=== PATIENT | female | born 1985 | race Two or more races ===

== ENCOUNTER 2019-08-12 03:27 | Emergency (ER) | payer OTHER ==
[2019-08-12 03:38] VITALS: BP 117/80
[2019-08-12] MEDS ORDERED: NORMAL SALINE 1000 ML 1,000 ML IV ONE (04:40)
[2019-08-12] MEDS ORDERED: LIDOCAINE 2% VISCOUS SOLN 15 ML UDCUP PO ONE (04:41)
[2019-08-12] MEDS ORDERED: ONDANSETRON HCL INJ/PF 4 MG/2 ML SDV IV ONE (04:41)
[2019-08-12] MEDS ORDERED: METOCLOPRAMIDE HCL ORAL SOLN 10 MG/10 ML UDCUP PO ONE (04:42)
[2019-08-12] MEDS ORDERED: MAG HYDROX/AL HYDROX/SIMETH SUSP 30 ML UDCUP PO ONE (04:42)
--- NOTE | 2019-08-12 04:44 | ER Document Report ---
Entered by MADDY SMITH SCRIBE 08/12/19 0411 Acting as scribe for:JONATAN MONTANEZ IV, MD ED GI/ - General Mode of Arrival: Ambulatory Information source: Patient <JONATAN MONTANEZ IV - Last Filed: 08/12/19 05:41> <RYLAN ELIAS - Last Filed: 08/12/19 08:05> - General Chief Complaint: Epigastric Pain Stated Complaint: ABDOMINAL PAIN/VOMITING Time Seen by Provider: 08/12/19 04:08 Notes: This 34 year old female patient with a history of GERD presents to the ED today with complaints of epigastric pain with associated nausea/vomiting for the past x2 days. Patients states that the pain is sharp in nature and is exacerbated by food and drink. She reports that she has had episodes of reflux in the past, but not like this, stating that the pain feels like a "gas pain that is constant." She notes that she has been vomiting acid and that she has not been able to keep anything down. (JONATAN MONTANEZ IV) - Related Data Allergies/Adverse Reactions: No Known Allergies Allergy (Unverified 08/12/19 03:49) Past Medical History - General Information source: Patient - Social History Smoking Status: Current Every Day Smoker Cigarette use (# per day): Yes Chew tobacco use (# tins/day): No Smoking Education Provided: No Frequency of alcohol use: Social Drug Abuse: None Family History: Reviewed & Not Pertinent Patient has suicidal ideation: No Patient has homicidal ideation: No GI Medical History: Reports: Hx Gastroesophageal Reflux Disease <JONATAN MONTANEZ IV - Last Filed: 08/12/19 05:41> Review of Systems - Review of Systems Constitutional: No symptoms reported EENT: No symptoms reported Cardiovascular: No symptoms reported Respiratory: No symptoms reported Gastrointestinal: See HPI, Abdominal pain, Nausea, Vomiting Genitourinary: No symptoms reported Female Genitourinary: No symptoms reported Musculoskeletal: No symptoms reported Skin: No symptoms reported Hematologic/Lymphatic: No symptoms reported Neurological/Psychological: No symptoms reported -: Yes All other systems reviewed and negative <JONATAN MONTANEZ IV - Last Filed: 08/12/19 05:41> Physical Exam - Vital signs Interpretation: Normal - General General appearance: Alert In distress: None - HEENT Head: Normocephalic, Atraumatic Eyes: Normal Pupils: PERRL - Respiratory Respiratory status: No respiratory distress Chest status: Nontender Breath sounds: Normal Chest palpation: Normal - Cardiovascular Rhythm: Regular Heart sounds: Normal auscultation Murmur: No Friction rub: No Gallop: None auscultated - Abdominal Inspection: Normal Distension: No distension Bowel sounds: Normal Tenderness: Tender - Tenderness to palpation of epigastric region, Other - Abdomen soft Organomegaly: No organomegaly - Back Back: Normal, Nontender - Extremities General upper extremity: Normal inspection General lower extremity: Normal inspection - Neurological Neuro grossly intact: Yes Orientation: AAOx4 - Psychological Associated symptoms: Normal affect, Normal mood - Skin Skin Temperature: Warm Skin Moisture: Dry Skin Color: Normal <JONATAN MONTANEZ IV - Last Filed: 08/12/19 05:41> - Vital signs Vitals: Temp Pulse Resp BP Pulse Ox 98.3 F 87 16 117/80 100 08/12/19 03:37 08/12/19 03:37 08/12/19 03:37 08/12/19 03:37 08/12/19 03:37 Course <JONATAN MONTANEZ IV - Last Filed: 08/12/19 05:41> - Laboratory Result Diagrams: 08/12/19 04:55 08/12/19 04:55 - Diagnostic Test Radiology reviewed: Image reviewed, Reports reviewed <RYLAN ELIAS - Last Filed: 08/12/19 08:05> - Re-evaluation Re-evalutation: 08/12/19 07:58 Dr. ribeiro asked me to follow-up with this patient discharge, laboratories and make a disposition for her once her work-up is complete. Patient resting comfor tably not having any abdominal pain at this time. Patient reports that she wants to go home because she is from out of town and wants to complete her work- up in [place] with her primary care physician. I explained to patient that she had abnormal LFTs and I was concerned that she may have gallbladder problems. Patient denies any excessive alcohol use or taking Tylenol any hepatitis in the past. Patient reports that she she will be driving back to [place] tomorrow and wants to pick this problem up and take it to her primary care physician. I advised patient to avoid fatty foods in her wrote home because of his her gallbladder and may act up again. Patient denies agreeing with any further work-up at this time in our hospital. I explained the patient she does not appear to have any life-threatening illness at this time or any surgical emergency. Will place patient on Zofran and omeprazole to assist her in getting home without nausea and vomiting and acid reflux problems. (RYLAN ELIAS) - Vital Signs Vital signs: Temp Pulse Resp BP Pulse Ox 98.3 F 87 16 117/80 100 08/12/19 03:37 08/12/19 03:37 08/12/19 03:37 08/12/19 03:37 08/12/19 03:37 08/12/19 08:01 Vital signs stables no acute process. (RYLAN ELIAS) - Laboratory Laboratory results interpreted by me: 08/12/19 08/12/19 03:37 04:55 Potassium 3.5 L Glucose 115 H AST 723 H ALT 358 H Urine Protein 100 H Urine Blood SMALL H Urine Urobilinogen 2.0 H Ur Leukocyte Esterase TRACE H 08/12/19 08:02 Laboratories show an elevation in the ALT and AST. Normal alk phos and normal bilirubin. Patient still has her gallbladder and I explained the patient that most likely these elevations may be related to gallbladder disease. (RYLAN ELIAS) - Diagnostic Test Radiology results interpreted by me: 08/12/19 08:01 Chest x-ray shows no acute process. (RYLAN ELIAS) - EKG Interpretation by Me Additional EKG results interpreted by me: 08/12/19 05:41 EKG obtained on 08/12/2019 at 0531 hrs. was interpreted by this MD. Findings: Normal sinus rhythm, rate 83, normal axis, P waves proceed QRS complexes, QRS complexes appear narrow, there are no obvious patterns of ST segment elevation or depression present to suggest acute myocardial ischemia or infarction. Impression: Normal sinus rhythm with nonspecific ST segments. (JONATAN MONTANEZ IV) Discharge <JONATAN MONTANEZ IV - Last Filed: 08/12/19 05:41> <RYLAN ELIAS - Last Filed: 08/12/19 08:05> - Discharge Clinical Impression: Epigastric pain, LFT elevation, Nausea Condition: Stable Disposition: HOME, SELF-CARE Instructions: Gallbladder Disease ([facility]) Prescriptions: Omeprazole 40 mg PO DAILY #10 capsule. Ondansetron [Zofran Odt 4 mg Tablet] 1 - 2 tab PO Q4H PRN #15 tab.rapdis PRN Reason: For Nausea/Vomiting I personally performed the services described in the documentation, reviewed and edited the documentation which was dictated to the scribe in my presence, and it accurately records my words and actions.
--- NOTE | 2019-08-12 05:27 | RADIOLOGY REPORT (SQ) ---
EXAM DESCRIPTION: XR CHEST 1 VIEW COMPLETED DATE/TME: 08/12/2019 04:40 CLINICAL HISTORY: 34 years, Female, epigastric pain COMPARISON: None. NUMBER OF VIEWS: One TECHNIQUE: AP view of the chest LIMITATIONS: None. FINDINGS: The lungs are clear. The heart is normal in size. No pneumothorax or pleural effusion. Bones are unremarkable. IMPRESSION: No acute cardiopulmonary abnormality. copyright 2010 [employer]- All Rights Reserved
[2019-08-12 06:01] LABS: APPEARANCE,URINE TURBID; BILIRUBIN,URINE NEGATIVE (NEGATIVE); GLUCOSE, URINE NEGATIVE (NEGATIVE); KETONES,URINE NEGATIVE (NEGATIVE); LEUKOCYTE ESTERASE,URINE TRACE (NEGATIVE); NITRITE,URINE NEGATIVE (NEGATIVE); PROTEIN,URINE 100 mg/dL (NEGATIVE); URINE SPECIFIC GRAVITY 1.027
[2019-08-12 06:05] LABS: COLOR,URINE DARK YELLOW
--- NOTE | 2019-08-12 06:05 | EKG REPORT ---
SEVERITY:- NORMAL ECG - SINUS RHYTHM : Confirmed by: Jamar Darby MD 12-Aug-2019 06:04:15
[2019-08-12 06:11] LABS: ALBUMIN 4.1 g/dL (3.5-5.0); ALKALINE PHOSPHATASE 77 U/L (38-126); ANION GAP 8 (5-19); ASPARTATE AMINO TRANSFERASE 723 U/L (14-36); BILIRUBIN,TOTAL 0.5 mg/dL (0.2-1.3); BLOOD UREA NITROGEN 13 mg/dL (7-20); CALCIUM 8.7 mg/dL (8.4-10.2); CARBON DIOXIDE 26 mmol/L (22-30); CHLORIDE 104 mmol/L (98-107); GLUCOSE 115 mg/dL (75-110); POTASSIUM 3.5 mmol/L (3.6-5.0)
[2019-08-12 07:27] LABS: ABSOLUTE EOSINOPHILS # (AUTO) 0.2 10^3/uL (0.0-0.6); ABSOLUTE MONOCYTES (AUTO) 0.5 10^3/uL (0.1-1.4); ABSOLUTE NEUT (AUTO) 4.7 10^3/uL (1.7-8.2); BASOPHILS % (AUTO) 0.7 % (0-2); EOSINOPHILS % (AUTO) 3.2 % (0-6); HEMATOCRIT 37.4 % (36.0-47.0); HEMOGLOBIN 12.6 g/dL (12.0-15.5); LYMPHOCYTES % (AUTO) 15.5 % (13-45); MEAN CORPUSCULAR HEMOGLOBIN 31.3 pg (27.0-33.4); MEAN CORPUSCULAR HGB CONC 33.8 g/dL (32.0-36.0); MEAN CORPUSCULAR VOLUME 93 fl (80-97); MONOCYTES % (AUTO) 8.3 % (3-13); PLATELET COUNT 181 10^3/uL (150-450); RED BLOOD COUNT 4.03 10^6/uL (3.72-5.28); RED CELL DISTRIBUTION WIDTH 13.2 % (11.5-14.0); SEGMENTED NEUTROPHILS % (AUTO) 72.3 % (42-78); TOTAL CELLS COUNTED % (AUTO) 100 %; WHITE BLOOD COUNT 6.5 10^3/uL (4.0-10.5)
== END 2019-08-12 08:35 | disposition home or self-care (01) ==
LOC: ER 03:27
DX: R10.13 Epigastric pain (principal); R11.2 Nausea with vomiting, unspecified; R10.816 Epigastric abdominal tenderness; R74.0 Nonspecific elevation of levels of transaminase and lactic acid dehydrogenase [LDH]; F17.210 Nicotine dependence, cigarettes, uncomplicated; Z87.19 Personal history of other diseases of the digestive system
CPT/HCPCS: 93005; 99284; 96361; 96374; 36415; 83690; 85025; 81025; 80053; 81001; 71045; 93010; J3490; J2405; J7030